=== PATIENT | male | born 1950 | race Hispanic/Latino ===

== ENCOUNTER 2019-12-06 09:23 | Inpatient (IN) | payer MEDICARE, OTHER ==
[~2019-12-06] VITALS: Ht 162.6 cm; Wt 81.2 kg
[~2019-12-06 09:23] MED LIST: DIPHENOXYLATE-1 EACH PO; MORPHINE SULFAT15 M3
[2019-12-06 09:29] VITALS: BP 170/90
--- NOTE | 2019-12-06 10:10 | Emergency Room Report ---
History of Present Illness General Chief Complaint: Abdominal Pain Source: Patient Present Illness HPI 69-year-old male presents for evaluation. Brought in by EMS from home for vomiting and diarrhea. States symptoms started yesterday. Pain is cramping, 6 out of 10, nonradiating. Denies fevers or chills. Denies chest pain or shortness of breath. States that earlier this week he tested positive for COVID. Had a mild cough so he got tested. Lives with several of her family members. Unclear of their COVID status. No other aggravating relieving factors. Denies any other associated symptoms Allergies: Coded Allergies: No Known Allergies (Unverified , 07/13/12) COVID-19 Screening Contact w/high risk pt: No Experienced COVID-19 symptoms?: Yes COVID-19 Testing performed INFECTIOUS DISEASES PHYSICIAN: Yes COVID-19 Screening: Positive COVID-19 COVID-19 Testing Source: NOSE Patient History Past Medical History: other - colon ca Past Surgical History: none Pertinent Family History: none Social History: Denies: smoking, alcohol use, drug use Immunizations: UTD Reviewed Nursing Documentation: PMH: Agreed; PSxH: Agreed Nursing Documentation-PMH Past Medical History: No Stated History Hx Cancer: Yes - COLON CA Hx Gastrointestinal Problems: Yes - COLOSTOMY Review of Systems All Other Systems: negative except mentioned in HPI Physical Exam Vital Signs Date Time Temp Pulse Resp B/P (MAP) Pulse Ox O2 Delivery O2 Flow Rate FiO2 12/06/19 09:18 98.8 88 16 170/90 (116) 96 Room Air Sp02 EP Interpretation: reviewed, normal General Appearance: no apparent distress, alert, GCS 15, non-toxic Head: normocephalic, atraumatic Eyes: bilateral eye normal inspection, bilateral eye PERRL ENT: hearing grossly normal, normal pharynx, no angioedema, normal voice Neck: full range of motion, supple/symm/no masses Respiratory: chest non-tender, lungs clear, normal breath sounds, speaking full sentences Cardiovascular #1: regular rate, rhythm, no edema Cardiovascular #2: 2+ carotid (R), 2+ carotid (L), 2+ radial (R), 2+ radial (L) , 2+ dorsalis pedis (R), 2+ dorsalis pedis (L) Gastrointestinal: normal bowel sounds, non tender, soft, non-distended, no guarding, no rebound Rectal: deferred Genitourinary: normal inspection, no CVA tenderness Musculoskeletal: back normal, normal range of motion, gait/station normal, non- tender Neurologic: alert, motor strength/tone normal, oriented x3, sensory intact, responsive, speech normal Psychiatric: judgement/insight normal, memory normal, mood/affect normal, no suicidal/homicidal ideation Reflexes: 3+ bicep (R), 3+ bicep (L), 3+ tricep (R), 3+ tricep (L), 3+ knee (R) , 3+ knee (L) Lymphatic: no adenopathy Medical Decision Making Diagnostic Impression: Primary Impression: Nausea vomiting and diarrhea Additional Impressions: Weakness COVID-19 ER Course Hospital Course 69-year-old male presents ED with weakness, vomiting and diarrhea Differentialcolitis, dehydration, COVID Clinical course After initial history and physical I ordered labs, IV fluids, meds, chest x-ray Labs - leukopenia noted, Hb/Hct stable. electrolytes ok. COVID + CXR - no acute process IV hydration continued. Case discussed with Dr. Castillo and he agreed to accept the patient to his service for further care and support I feel this is a highly complex case requiring extensive working including EKG/ Rhythm strip, Xray/CT/US, Blood/urine lab work, repeat exams while in ED, and administration of strong opiates/narcotics for pain control, admission to hospital or close patient follow up. Diagnosis -nausea vomiting and diarrhea, weakness, COVID-19 Patient admitted to hospital in serious condition Laboratory Tests Test 12/06/19 09:32 White Blood Count 4.5 K/UL (4.8-10.8) L Red Blood Count 4.62 M/UL (4.70-6.10) L Hemoglobin 13.5 G/DL (14.2-18.0) L Hematocrit 41.6 % (42.0-52.0) L Mean Corpuscular Volume 90 FL (80-99) Mean Corpuscular Hemoglobin 29.3 PG (27.0-31.0) Mean Corpuscular Hemoglobin Concent 32.5 G/DL (32.0-36.0) Red Cell Distribution Width 11.3 % (11.6-14.8) L Platelet Count 221 K/UL (150-450) Mean Platelet Volume 5.6 FL (6.5-10.1) L Neutrophils (%) (Auto) 76.0 % (45.0-75.0) H Lymphocytes (%) (Auto) 14.1 % (20.0-45.0) L Monocytes (%) (Auto) 7.0 % (1.0-10.0) Eosinophils (%) (Auto) 2.6 % (0.0-3.0) Basophils (%) (Auto) 0.3 % (0.0-2.0) Erythrocyte Sedimentation Rate 24 MM/HR (0-20) H Prothrombin Time 10.9 SEC (9.30-11.50) Prothromb Time International Ratio 1.0 (0.9-1.1) Activated Partial Thromboplast Time 31 SEC (23-33) D-Dimer 0.26 mg/L FEU (0.00-0.49) Urine Color Pale yellow Urine Appearance Clear Urine pH 7 (4.5-8.0) Urine Specific [place] 1.010 (1.005-1.035) Urine Protein Negative (NEGATIVE) Urine Glucose (UA) Negative (NEGATIVE) Urine Ketones Negative (NEGATIVE) Urine Blood Negative (NEGATIVE) Urine Nitrite Negative (NEGATIVE) Urine Bilirubin Negative (NEGATIVE) Urine Urobilinogen Normal MG/DL (0.0-1.0) Urine Leukocyte Esterase Negative (NEGATIVE) Sodium Level 140 MMOL/L (136-145) Potassium Level 4.1 MMOL/L (3.5-5.1) Chloride Level 103 MMOL/L (98-107) Carbon Dioxide Level 30 MMOL/L (21-32) Anion Gap 7 mmol/L (5-15) Blood Urea Nitrogen 13 mg/dL (7-18) Creatinine 1.0 MG/DL (0.55-1.30) Estimat Glomerular Filtration Rate > 60 mL/min (>60) Glucose Level 102 MG/DL (74-106) Calcium Level 8.2 MG/DL (8.5-10.1) L Ferritin 135 NG/ML (8-388) Total Bilirubin 0.3 MG/DL (0.2-1.0) Aspartate Amino Transf (AST/SGOT) 21 U/L (15-37) Alanine Aminotransferase (ALT/SGPT) 24 U/L (12-78) Alkaline Phosphatase 88 U/L (46-116) C-Reactive Protein, Quantitative < 0.4 mg/dL (0.00-0.90) Total Protein 7.1 G/DL (6.4-8.2) Albumin 3.3 G/DL (3.4-5.0) L Globulin 3.8 g/dL Albumin/Globulin Ratio 0.9 (1.0-2.7) L Lipase 102 U/L (73-393) Chest X-Ray Diagnostic Results Chest X-Ray Diagnostic Results : Chest X-Ray Ordered: Yes # of Views/Limited/Complete: 1 View Indication: Other EP Interpretation: Yes Interpretation: no consolidation, no effusion, no pneumothorax Impression: No acute disease Electronically Signed by: Electronically signed by Jones Villagomez MD Last Vital Signs Date Time Temp Pulse Resp B/P (MAP) Pulse Ox O2 Delivery O2 Flow Rate FiO2 12/06/19 09:29 88 16 Room Air 12/06/19 09:29 98.8 170/90 96 Status: improved Disposition: ADMITTED INPATIENT Condition: Serious Referrals: [facility],REFERRING (PCP) Jones Villagomez MD Dec 06, 2019 10:10
[2019-12-06 10:37] LABS: BASOPHILS % (AUTO) 0.3 % (0.0-2.0); EOSINOPHILS % (AUTO) 2.6 % (0.0-3.0); HEMATOCRIT 41.6 % (42.0-52.0); HEMOGLOBIN 13.5 G/DL (14.2-18.0); LYMPHOCYTES % (AUTO) 14.1 % (20.0-45.0); MEAN CORPUSCULAR VOLUME 90 FL (80-99); PLATELET COUNT 221 K/UL (150-450); RED BLOOD COUNT 4.62 M/UL (4.70-6.10); RED CELL DISTRIBUTION WIDTH 11.3 % (11.6-14.8); WHITE BLOOD COUNT 4.5 K/UL (4.8-10.8)
[2019-12-06 10:40] LABS: APPEARANCE,URINE CLEAR; BILIRUBIN, URINE NEGATIVE (NEGATIVE); COLOR,URINE PALE YELLOW; GLUCOSE, URINE (UA) NEGATIVE (NEGATIVE); KETONES,URINE NEGATIVE (NEGATIVE); LEUKOCYTE ESTERASE ,URINE NEGATIVE (NEGATIVE); NITRITE,URINE NEGATIVE (NEGATIVE); PH,URINE 7 (4.5-8.0); PROTEIN,URINE NEGATIVE (NEGATIVE); UROBILINOGEN,URINE NORMAL MG/DL (0.0-1.0)
[2019-12-06 10:57] LABS: ANION GAP 7 mmol/L (5-15); BLOOD UREA NITROGEN 13 mg/dL (7-18); CALCIUM 8.2 MG/DL (8.5-10.1); CARBON DIOXIDE 30 MMOL/L (21-32); CHLORIDE 103 MMOL/L (98-107); POTASSIUM 4.1 MMOL/L (3.5-5.1); SODIUM 140 MMOL/L (136-145)
[2019-12-06 11:13] LABS: ALANINE AMINOTRANSFERASE 24 U/L (12-78); ALBUMIN 3.3 G/DL (3.4-5.0); ALBUMIN/GLOBULIN RATIO 0.9 (1.0-2.7); ALKALINE PHOSPHATASE 88 U/L (46-116); ASPARTATE AMINO TRANSFERASE 21 U/L (15-37); BILIRUBIN,TOTAL 0.3 MG/DL (0.2-1.0); FERRITIN 135 NG/ML (8-388)
[2019-12-06 11:29] VITALS: BP 157/89
--- NOTE | 2019-12-06 13:14 | History & Physical ---
History and Physical History & Physicial dictated [id number] Reinaldo Castillo MD Dec 06, 2019 13:14
[2019-12-06] MEDS ORDERED: Morphine Sulfate 2mg/ml Inj(IV/IM USE ONLY) IVP PRN (13:15)
[2019-12-06] MEDS ORDERED: Zolpidem 5mg tab ORAL PRN (13:15)
[2019-12-06] MEDS: Azithromycin 250mg tab ORAL SCH (14:00)
[2019-12-06] MEDS: Enoxaparin 40mg Inj SUBQ SCH (14:00)
[2019-12-06] MEDS: D5 1/2NS w/KCl 20mEq 1,000 ML IV SCH (14:00)
[2019-12-06 16:00] VITALS: BP 128/67
--- NOTE | 2019-12-06 17:06 | Diagnostic Imaging Report ---
Indication: Cough Technique: One view of the chest Comparison: none Findings: Lungs and pleural spaces are clear. Heart size is normal. Impression: No acute process
[2019-12-06] MEDS: Morphine Sulfate 4mg/ml Inj (IV USE ONLY) IVP PRN ×2 (17:50→21:26)
[2019-12-06 20:00] VITALS: BP 117/69
[2019-12-06] MEDS: Milk of Magnesia 30ml Ud ORAL PRN (21:29)
--- NOTE | 2019-12-06 23:30 | History and Physical Report ---
DATE OF ADMISSION: 12/06/2019 CHIEF COMPLAINT: Diarrhea, abdominal pain, and chest pain. HISTORY OF PRESENT ILLNESS: This is a 69-year-old male, who started getting weak and dizzy on last Monday, which is four days prior to admission. The following day, he started having diarrhea. On Monday, he was seen at [facility] and was tested positive for COVID-19. His symptoms of diarrhea continued and finally he came to the emergency room. The patient has also chest pain and some cough and not short of breath. PAST MEDICAL HISTORY: Reported history of colon cancer. MEDICATIONS: Reviewed in the EMR. SOCIAL HISTORY: No history of smoking or alcohol abuse. The patient lives at home with family. ALLERGIES: No known drug allergies. REVIEW OF SYSTEMS: As above. PHYSICAL EXAMINATION: GENERAL: The patient is 69-year-old male, in no acute distress. VITAL SIGNS: Blood pressure 170/90, pulse 88, respirations 16, temperature 98.8. The patient's O2 saturation is 96% on room air. HEENT: [place] conjunctivae. Anicteric sclerae. NECK: Supple. LUNGS: Clear to auscultation. HEART: S1, S2 without murmurs or rubs. ABDOMEN: Soft, nontender. EXTREMITIES: No cyanosis or edema. LABORATORY FINDINGS: The CBC shows a WBC of 4500, hematocrit is 41.6, hemoglobin is 13.5, and platelet is 221,000. Chemistry panel shows a serum sodium 140, potassium 4.1, chloride 103, carbon dioxide 30, BUN 13, creatinine 1, calcium is 8.2. Albumin is 3.3. UA was negative. ASSESSMENT: This is 69-year-old male, who comes to the emergency room with diarrhea, chest pain, abdominal pain, some cough and reported COVID-19 test positivity. So far, he does not have shortness of breath. Denies respiratory symptoms. PLAN: The patient will be admitted. He is going to be on empiric Zithromax. ID consultation will be obtained. He will be hydrated with IV fluids. The patient will be on full liquid diet. DVT prophylaxis with Lovenox. Once he is improved, he can go home and needs to be in isolation. Reinaldo Castillo M.D. DR: MACK JOB#: [id number] CC:
[2019-12-07] VITALS (15 sets, daily range): BP systolic 121–156; BP diastolic 63–82
[2019-12-07] MEDS: D5 1/2NS w/KCl 20mEq 1,000 ML IV SCH ×3 (00:05→21:30)
[2019-12-07] MEDS: Morphine Sulfate 4mg/ml Inj (IV USE ONLY) IVP PRN ×3 (05:28→20:56)
[2019-12-07 06:16] LABS: BASOPHILS % (AUTO) 0.4 % (0.0-2.0); EOSINOPHILS % (AUTO) 1.4 % (0.0-3.0); HEMATOCRIT 41.2 % (42.0-52.0); HEMOGLOBIN 13.3 G/DL (14.2-18.0); LYMPHOCYTES % (AUTO) 9.9 % (20.0-45.0); MEAN CORPUSCULAR VOLUME 91 FL (80-99); MONOCYTES % (AUTO) 4.5 % (1.0-10.0); NEUTROPHILS % (AUTO) 83.8 % (45.0-75.0); PLATELET COUNT 216 K/UL (150-450); RED BLOOD COUNT 4.54 M/UL (4.70-6.10); RED CELL DISTRIBUTION WIDTH 11.6 % (11.6-14.8)
[2019-12-07 06:37] LABS: ALANINE AMINOTRANSFERASE 26 U/L (12-78); ALBUMIN 3.4 G/DL (3.4-5.0); ALBUMIN/GLOBULIN RATIO 0.8 (1.0-2.7); ALKALINE PHOSPHATASE 90 U/L (46-116); ANION GAP 5 mmol/L (5-15); ASPARTATE AMINO TRANSFERASE 23 U/L (15-37); BILIRUBIN,TOTAL 0.3 MG/DL (0.2-1.0); BLOOD UREA NITROGEN 10 mg/dL (7-18); CALCIUM 8.1 MG/DL (8.5-10.1); CARBON DIOXIDE 32 MMOL/L (21-32); CHLORIDE 101 MMOL/L (98-107); POTASSIUM 4.3 MMOL/L (3.5-5.1); SODIUM 138 MMOL/L (136-145)
[2019-12-07] MEDS: Azithromycin 250mg tab ORAL SCH (08:56)
[2019-12-07] MEDS: Enoxaparin 40mg Inj SUBQ SCH (08:56)
--- NOTE | 2019-12-07 14:36 | General Progress Note ---
Assessment/Plan Problem List: (1) COVID-19 ICD Codes: U07.1 - COVID-19 SNOMED: 473015282 (2) Nausea vomiting and diarrhea ICD Codes: R11.2 - Nausea with vomiting, unspecified; R19.7 - Diarrhea, unspecified SNOMED: 8786004 (3) Weakness ICD Codes: R53.1 - Weakness; R19.7 - Diarrhea, unspecified SNOMED: 96534686 Assessment/Plan: abxs IVF follow labs Discussed with RN Subjective Allergies: Coded Allergies: No Known Allergies (Unverified , 07/13/12) Subjective diarrhea is better Objective Last 24 Hour Vital Signs Date Time Temp Pulse Resp B/P (MAP) Pulse Ox O2 Delivery O2 Flow Rate FiO2 12/07/19 12:30 97.7 70 18 154/82 (106) 97 12/07/19 08:30 97.6 81 18 148/66 (93) 98 12/07/19 08:00 97.5 81 18 151/75 (100) 99 12/07/19 07:48 Room Air 12/07/19 07:30 97.6 72 18 134/64 (87) 97 12/07/19 06:30 98.0 68 18 126/67 (86) 98 12/07/19 05:30 98.8 74 18 149/70 (96) 96 12/07/19 04:30 97.5 71 18 149/73 (98) 99 12/07/19 04:00 97.5 63 18 127/66 (86) 97 12/07/19 03:30 97.4 59 18 130/63 (85) 100 12/07/19 03:24 56 20 96 12/07/19 03:19 97.3 96 Nasal Cannula 2.0 12/07/19 03:00 97.6 63 16 141/72 (95) 100 12/07/19 00:00 98.3 79 18 121/68 (85) 97 12/06/19 21:00 Room Air 12/06/19 20:00 98.0 74 18 117/69 (85) 97 12/06/19 16:00 98.9 66 18 128/67 (87) 97 Intake and Output 12/06/19 12/07/19 19:00 07:00 Intake Total 1100 ml 1000 ml Output Total 1400 ml Balance 1100 ml -400 ml Intake Oral 0 ml IV Total 500 ml 1000 ml Other 600 ml Output Urine Total 1400 ml # Voids 5 Laboratory Tests 12/07/19 05:30: White Blood Count 5.0, Red Blood Count 4.54L, Hemoglobin 13.3L, Hematocrit 41.2L , Mean Corpuscular Volume 91, Mean Corpuscular Hemoglobin 29.2, Mean Corpuscular Hemoglobin Concent 32.2, Red Cell Distribution Width 11.6, Platelet Count 216, Mean Platelet Volume 5.3L, Neutrophils (%) (Auto) 83.8H, Lymphocytes (%) (Auto) 9.9L, Monocytes (%) (Auto) 4.5, Eosinophils (%) (Auto) 1.4, Basophils (%) (Auto) 0.4, Sodium Level 138, Potassium Level 4.3, Chloride Level 101, Carbon Dioxide Level 32, Anion Gap 5, Blood Urea Nitrogen 10, Creatinine 1.0, Estimat Glomerular Filtration Rate > 60, Glucose Level 129H, Hemoglobin A1c 5.9, Calcium Level 8.1L, Magnesium Level 2.2, Total Bilirubin 0.3, Aspartate Amino Transf (AST/SGOT) 23, Alanine Aminotransferase (ALT/SGPT) 26, Alkaline Phosphatase 90, Total Protein 7.5, Albumin 3.4, Globulin 4.1, Albumin/ Globulin Ratio 0.8L Height (Feet): 5 Height (Inches): 4.00 Weight (Pounds): 180 Reinaldo Castillo MD Dec 07, 2019 14:36
[2019-12-07] MEDS: Milk of Magnesia 30ml Ud ORAL PRN (21:02)
[2019-12-08] VITALS (14 sets, daily range): BP systolic 126–142; BP diastolic 68–82
[2019-12-08] MEDS: D5 1/2NS w/KCl 20mEq 1,000 ML IV SCH ×2 (06:00→17:31)
[2019-12-08] MEDS: Azithromycin 250mg tab ORAL SCH (09:50)
[2019-12-08] MEDS: Enoxaparin 40mg Inj SUBQ SCH (09:51)
[2019-12-08] MEDS ORDERED: guaiFENesin w/Codeine 5ml Liq ud ORAL PRN (11:44)
--- NOTE | 2019-12-08 11:44 | General Progress Note ---
Assessment/Plan Problem List: (1) COVID-19 ICD Codes: U07.1 - COVID-19 SNOMED: 593972178 (2) Nausea vomiting and diarrhea ICD Codes: R11.2 - Nausea with vomiting, unspecified; R19.7 - Diarrhea, unspecified SNOMED: 7940718 (3) Weakness ICD Codes: R53.1 - Weakness; R19.7 - Diarrhea, unspecified SNOMED: 49109469 Assessment/Plan: add Robitussin with codeine abxs IVF Discussed with RN Subjective Allergies: Coded Allergies: No Known Allergies (Unverified , 07/13/12) Subjective C/O cough Objective Last 24 Hour Vital Signs Date Time Temp Pulse Resp B/P (MAP) Pulse Ox O2 Delivery O2 Flow Rate FiO2 12/08/19 08:30 98.3 72 20 134/82 (99) 97 12/08/19 08:00 98.3 72 20 134/82 (99) 97 12/08/19 04:00 98.0 70 19 138/79 (98) 96 12/08/19 00:00 98.2 60 20 142/73 (96) 95 12/07/19 20:36 Room Air 12/07/19 20:00 97.7 56 20 137/66 (89) 95 12/07/19 16:30 96.3 71 18 156/80 (105) 97 12/07/19 12:30 97.7 70 18 154/82 (106) 97 Intake and Output 12/07/19 12/08/19 19:00 07:00 Intake Total 600 ml 700 ml Balance 600 ml 700 ml Intake Oral 600 ml IV Total 700 ml # Voids 2 3 # Bowel Movements 2 Height (Feet): 5 Height (Inches): 4.00 Weight (Pounds): 180 Cardiovascular: normal rate Respiratory/Chest: lungs clear Edema: no edema noted Generalized Reinaldo Castillo MD Dec 08, 2019 11:44
--- NOTE | 2019-12-08 18:30 | Consultation ---
DATE OF CONSULTATION: 12/08/2019 This is a 69-year-old male who was admitted to the hospital with COVID-19 pneumonia. He reports diarrhea, weakness and dizziness. He has tested outside and is positive for COVID-19. He also underwent rapid gene assay at this hospital, which came back positive. The patient states that he is feeling better overnight. I have reviewed his x-ray, which shows clear lung linares bilaterally. Currently, he is also noted to be saturating well on room air. PAST HISTORY: Unremarkable except for history of colon cancer. SOCIAL HISTORY: Denies alcohol or tobacco use. Lives at home with family. ALLERGIES: None. REVIEW OF SYSTEMS: Denies any headaches, hematemesis, melena, or hematochezia. PHYSICAL EXAMINATION: GENERAL: Reveals a 69-year-old male. HEENT: Unremarkable. LUNGS: Clear breath sounds. ABDOMEN: Soft. EXTREMITIES: There is no edema. NEUROLOGIC: Nonfocal. LABORATORY DATA: Lab testing is unremarkable except for borderline low white count of 4500. IMPRESSION: 1. COVID-19 pneumonia. 2. Normoxemia. DISCUSSION: Continue medications. At this time, I feel he can be discharged safely as long as he can self quarantine. We will follow as needed. Pop Waldrop M.D. DR: PROSPER JOB#: [id number] CC:
--- NOTE | 2019-12-08 20:44 | Consultation ---
DATE OF CONSULTATION: 12/08/2019 INFECTIOUS DISEASE CONSULTATION CONSULTING PHYSICIAN: Don Castillo MD. PRIMARY ATTENDING: Reinaldo Castillo MD. REASON FOR CONSULT: COVID-19 disease. HISTORY OF PRESENT ILLNESS: This is a 69-year-old male admitted on 12/06/2019 from home because of abdominal pain, diarrhea. Patient had a cough that is slightly productive, was diagnosed with COVID-19 disease. He is not hypoxemic and in room air oxygenation. PAST MEDICAL HISTORY: Significant for history of colon cancer. Had surgery in 2008. ALLERGIES: No known drug allergies. MEDICATIONS: Robitussin, enoxaparin, famotidine, Zithromax, Tylenol, morphine, Zofran, Ambien. SOCIAL HISTORY: . Originally from [place], [place]. Denies alcohol, drug abuse, or smoking. He is retired. REVIEW OF SYSTEMS: No fever. No chills. Mild productive coughing. No nausea. No vomiting. Mild diarrhea. No dysuria. PHYSICAL EXAMINATION: VITAL SIGNS: Temperature 98.3, pulse 71, blood pressure 138/79. GENERAL APPEARANCE: Overweight. HEAD AND NECK: [place] conjunctivae. HEART: Normal rate. LUNGS: Clear. ABDOMEN: Soft, nontender. EXTREMITIES: No edema. LABORATORY AND DIAGNOSTIC DATA: WBC 5000, hemoglobin 13.3, hematocrit 41.2, platelets 216, lymphocyte count is low at 9.9%. Sodium 138, potassium 4.3, chloride 101, BUN 10, creatinine 1, glucose 129. LFTs within normal limits. COVID-19 test was positive. Chest x-ray, no acute infiltrate. IMPRESSION: COVID-19 disease. Seems patient had no hypoxemia. Has history of colon cancer. Has lymphopenia. RECOMMENDATION: Discontinue Zithromax. We will follow up the clinical course. At the end of my exam, I thank Dr. Reinaldo Castillo, for involving me in the care of this patient. Don Castillo M.D. DR: SOFIA JOB#: [id number] CC: MICHELLE
[2019-12-09] VITALS (9 sets, daily range): BP systolic 110–144; BP diastolic 56–83
[2019-12-09] MEDS: D5 1/2NS w/KCl 20mEq 1,000 ML IV SCH ×3 (02:00→22:25)
[2019-12-09] MEDS: Enoxaparin 40mg Inj SUBQ SCH (08:11)
--- NOTE | 2019-12-09 09:43 | Pulmonology Progress Note ---
Subjective Interval Events: None new; discussed with RN Constitutional: Reports: no symptoms HEENT: Repors: no symptoms Respiratory: Reports: no symptoms Gastrointestinal/Abdominal: Reports: no symptoms Allergies: Coded Allergies: No Known Allergies (Unverified , 07/13/12) Objective Last 24 Hour Vital Signs Date Time Temp Pulse Resp B/P (MAP) Pulse Ox O2 Delivery O2 Flow Rate FiO2 12/09/19 04:00 97.7 71 19 144/71 (95) 94 12/09/19 03:02 97.8 76 18 137/65 (89) 95 12/09/19 02:02 98.2 78 19 132/68 (89) 95 12/09/19 01:02 98.3 82 18 135/75 (95) 94 12/09/19 00:02 98.0 76 20 133/79 (97) 93 12/08/19 23:02 97.6 85 19 127/75 (92) 95 12/08/19 22:56 Room Air 12/08/19 22:32 97.8 87 19 128/72 (90) 96 12/08/19 22:19 98.1 95 Room Air 12/08/19 22:02 98.1 89 18 134/68 (90) 95 12/08/19 21:56 95 18 95 12/08/19 21:32 98.2 93 19 132/72 (92) 95 12/08/19 21:02 98.1 95 18 135/68 (90) 95 12/08/19 20:00 97.7 77 19 126/77 (93) 95 12/08/19 16:00 98.6 74 19 130/80 (97) 97 12/08/19 12:00 98.3 71 19 138/79 (98) 98 Intake and Output 12/08/19 12/09/19 19:00 07:00 Intake Total 2260 ml 50 ml Balance 2260 ml 50 ml Intake Oral 1360 ml 50 ml IV Total 900 ml # Voids 6 2 General Appearance: no acute distress HEENT: normocephalic Respiratory: chest wall non-tender, lungs clear Cardiovascular: normal peripheral pulses Abdomen: normal bowel sounds Current Medications Medications (Trade) Dose Ordered Sig/Eulogio Route PRN Reason Start Time Stop Time Status Last Admin Dose Admin Acetaminophen (Tylenol) 650 mg Q4H PRN ORAL Mild Pain (Pain Scale 1-3) 12/06/19 13:15 01/05/20 13:14 Dextrose (Dextrose 50%) 25 ml Q30M PRN IV Hypoglycemia 12/06/19 13:15 03/05/20 13:14 Dextrose (Dextrose 50%) 50 ml Q30M PRN IV Hypoglycemia 12/06/19 13:15 03/05/20 13:14 Dextrose/ Electrolytes 1,000 ml @ 100 mls/hr Q10H IV 12/06/19 14:00 01/05/20 13:59 12/08/19 17:31 Enoxaparin Sodium (Lovenox) 40 mg DAILY SUBQ 12/06/19 14:00 03/05/20 13:59 12/09/19 08:11 Famotidine (Pepcid) 20 mg BID ORAL 12/06/19 14:00 03/05/20 13:59 12/09/19 08:10 Guaifenesin/ Codeine Phosphate (Robitussin with codeine) 5 ml Q6H PRN ORAL For Cough 12/08/19 11:44 01/07/20 11:43 Magnesium Hydroxide (Mom) 30 ml HSPRN PRN ORAL Constipation 12/06/19 13:15 01/05/20 13:14 12/07/19 21:02 Morphine Sulfate (Morphine Sulfate) 2 mg Q3H PRN IVP Moderate Pain (Pain Scale 4-6) 12/06/19 13:15 12/13/19 13:14 12/08/19 03:08 Morphine Sulfate (Morphine Sulfate) 4 mg Q3H PRN IVP Severe Pain (Pain Scale 7-10) 12/06/19 13:15 12/13/19 13:14 12/07/19 20:56 Ondansetron HCl (Zofran) 4 mg Q6H PRN IVP Nausea & Vomiting 12/06/19 13:15 01/05/20 13:14 Zolpidem Tartrate (Ambien) 5 mg HSPRN PRN ORAL Insomnia 12/06/19 13:15 12/13/19 13:14 Assessment/Plan Assessment/Plan IMPRESSION: 1. COVID-19 pneumonia. 2. Normoxemia. DISCUSSION: Continue medications. At this time, I feel he can be discharged safely as long as he can self quarantine. I will follow as needed. Meg Glover Omar Syed ME Dec 09, 2019 09:43
--- NOTE | 2019-12-09 10:46 | Infectious Diseases Prog Note ---
Assessment/Plan Assessment/Plan IMPRESSION: COVID-19 disease. Seems patient had no hypoxemia. History of colon cancer. Has lymphopenia. Diarrhea resolved RECOMMENDATION: Observe off antibiotic Subjective ROS Limited/Unobtainable: No Constitutional: Reports: no symptoms Respiratory: Reports: no symptoms Cardiovascular: Reports: no symptoms Gastrointestinal/Abdominal: Reports: no symptoms Allergies: Coded Allergies: No Known Allergies (Unverified , 07/13/12) Objective Last 24 Hour Vital Signs Date Time Temp Pulse Resp B/P (MAP) Pulse Ox O2 Delivery O2 Flow Rate FiO2 12/09/19 08:00 97.9 98 18 119/83 (95) 93 12/09/19 04:00 97.7 71 19 144/71 (95) 94 12/09/19 03:02 97.8 76 18 137/65 (89) 95 12/09/19 02:02 98.2 78 19 132/68 (89) 95 12/09/19 01:02 98.3 82 18 135/75 (95) 94 12/09/19 00:02 98.0 76 20 133/79 (97) 93 12/08/19 23:02 97.6 85 19 127/75 (92) 95 12/08/19 22:56 Room Air 12/08/19 22:32 97.8 87 19 128/72 (90) 96 12/08/19 22:19 98.1 95 Room Air 12/08/19 22:02 98.1 89 18 134/68 (90) 95 12/08/19 21:56 95 18 95 12/08/19 21:32 98.2 93 19 132/72 (92) 95 12/08/19 21:02 98.1 95 18 135/68 (90) 95 12/08/19 20:00 97.7 77 19 126/77 (93) 95 12/08/19 16:00 98.6 74 19 130/80 (97) 97 12/08/19 12:00 98.3 71 19 138/79 (98) 98 Height (Feet): 5 Height (Inches): 4.00 Weight (Pounds): 180 HEENT: mucous membranes moist Respiratory/Chest: lungs clear Cardiovascular: normal rate Abdomen: soft, non tender Extremities: no edema Neurologic/Psychiatric: alert, oriented x 3, responsive Current Medications Medications (Trade) Dose Ordered Sig/Eulogio Route PRN Reason Start Time Stop Time Status Last Admin Dose Admin Acetaminophen (Tylenol) 650 mg Q4H PRN ORAL Mild Pain (Pain Scale 1-3) 12/06/19 13:15 01/05/20 13:14 Dextrose (Dextrose 50%) 25 ml Q30M PRN IV Hypoglycemia 12/06/19 13:15 03/05/20 13:14 Dextrose (Dextrose 50%) 50 ml Q30M PRN IV Hypoglycemia 12/06/19 13:15 03/05/20 13:14 Dextrose/ Electrolytes 1,000 ml @ 100 mls/hr Q10H IV 12/06/19 14:00 01/05/20 13:59 12/08/19 17:31 Enoxaparin Sodium (Lovenox) 40 mg DAILY SUBQ 12/06/19 14:00 03/05/20 13:59 12/09/19 08:11 Famotidine (Pepcid) 20 mg BID ORAL 12/06/19 14:00 03/05/20 13:59 12/09/19 08:10 Guaifenesin/ Codeine Phosphate (Robitussin with codeine) 5 ml Q6H PRN ORAL For Cough 12/08/19 11:44 01/07/20 11:43 Magnesium Hydroxide (Mom) 30 ml HSPRN PRN ORAL Constipation 12/06/19 13:15 01/05/20 13:14 12/07/19 21:02 Morphine Sulfate (Morphine Sulfate) 2 mg Q3H PRN IVP Moderate Pain (Pain Scale 4-6) 12/06/19 13:15 12/13/19 13:14 12/08/19 03:08 Morphine Sulfate (Morphine Sulfate) 4 mg Q3H PRN IVP Severe Pain (Pain Scale 7-10) 12/06/19 13:15 12/13/19 13:14 12/07/19 20:56 Ondansetron HCl (Zofran) 4 mg Q6H PRN IVP Nausea & Vomiting 12/06/19 13:15 01/05/20 13:14 Zolpidem Tartrate (Ambien) 5 mg HSPRN PRN ORAL Insomnia 12/06/19 13:15 12/13/19 13:14 Don Castillo MD Dec 09, 2019 10:46
--- NOTE | 2019-12-09 23:06 | General Progress Note ---
Assessment/Plan Problem List: (1) COVID-19 ICD Codes: U07.1 - COVID-19 SNOMED: 435743680 (2) Nausea vomiting and diarrhea ICD Codes: R11.2 - Nausea with vomiting, unspecified; R19.7 - Diarrhea, unspecified SNOMED: 4128830 (3) Weakness ICD Codes: R53.1 - Weakness; R19.7 - Diarrhea, unspecified SNOMED: 53927911 Assessment/Plan: continueRobitussin with codeine abxs IVF Discussed with RN Subjective Allergies: Coded Allergies: No Known Allergies (Unverified , 07/13/12) Subjective weak Objective Last 24 Hour Vital Signs Date Time Temp Pulse Resp B/P (MAP) Pulse Ox O2 Delivery O2 Flow Rate FiO2 12/09/19 19:02 98.2 75 18 110/56 (74) 95 12/09/19 15:02 97.2 81 18 134/81 (98) 97 12/09/19 11:02 97.3 73 20 134/77 (96) 97 12/09/19 09:00 Room Air 12/09/19 08:00 97.9 98 18 119/83 (95) 93 12/09/19 04:00 97.7 71 19 144/71 (95) 94 12/09/19 03:02 97.8 76 18 137/65 (89) 95 12/09/19 02:02 98.2 78 19 132/68 (89) 95 12/09/19 01:02 98.3 82 18 135/75 (95) 94 12/09/19 00:02 98.0 76 20 133/79 (97) 93 Intake and Output 12/08/19 12/09/19 19:00 07:00 Intake Total 2360 ml 150 ml Balance 2360 ml 150 ml Intake Oral 1360 ml 50 ml IV Total 1000 ml 100 ml # Voids 6 2 Height (Feet): 5 Height (Inches): 4.00 Weight (Pounds): 180 Reinaldo Castillo MD Dec 09, 2019 23:06
[2019-12-10] VITALS: BP 143/82
[2019-12-10 04:00] VITALS: BP 135/73
[2019-12-10 08:00] VITALS: BP 133/77
[2019-12-10] MEDS: Enoxaparin 40mg Inj SUBQ SCH (08:39)
[2019-12-10] MEDS: D5 1/2NS w/KCl 20mEq 1,000 ML IV SCH ×2 (10:05→17:48)
--- NOTE | 2019-12-10 11:22 | Pulmonology Progress Note ---
Subjective ROS Limited/Unobtainable: No Interval Events: None new; discussed with RN Constitutional: Reports: no symptoms HEENT: Repors: no symptoms Respiratory: Reports: no symptoms Gastrointestinal/Abdominal: Reports: no symptoms Allergies: Coded Allergies: No Known Allergies (Unverified , 07/13/12) Objective Last 24 Hour Vital Signs Date Time Temp Pulse Resp B/P (MAP) Pulse Ox O2 Delivery O2 Flow Rate FiO2 12/10/19 09:00 Room Air 12/10/19 08:00 98.8 73 18 133/77 (95) 93 12/10/19 04:00 96.8 76 18 135/73 (93) 93 12/10/19 00:00 97.3 79 18 143/82 (102) 96 12/09/19 21:00 Room Air 12/09/19 19:02 98.2 75 18 110/56 (74) 95 12/09/19 15:02 97.2 81 18 134/81 (98) 97 Intake and Output 12/09/19 12/10/19 19:00 07:00 Intake Total 1701 ml 1560 ml Balance 1701 ml 1560 ml IV Total 701 ml 1200 ml Other 1000 ml 360 ml # Voids 3 # Bowel Movements 1 General Appearance: no acute distress HEENT: normocephalic Respiratory: chest wall non-tender, lungs clear Cardiovascular: normal peripheral pulses Abdomen: normal bowel sounds Current Medications Medications (Trade) Dose Ordered Sig/Eulogio Route PRN Reason Start Time Stop Time Status Last Admin Dose Admin Acetaminophen (Tylenol) 650 mg Q4H PRN ORAL Mild Pain (Pain Scale 1-3) 12/06/19 13:15 01/05/20 13:14 Dextrose (Dextrose 50%) 25 ml Q30M PRN IV Hypoglycemia 12/06/19 13:15 03/05/20 13:14 Dextrose (Dextrose 50%) 50 ml Q30M PRN IV Hypoglycemia 12/06/19 13:15 03/05/20 13:14 Dextrose/ Electrolytes 1,000 ml @ 100 mls/hr Q10H IV 12/06/19 14:00 01/05/20 13:59 12/10/19 10:05 Enoxaparin Sodium (Lovenox) 40 mg DAILY SUBQ 12/06/19 14:00 03/05/20 13:59 12/10/19 08:39 Famotidine (Pepcid) 20 mg BID ORAL 12/06/19 14:00 03/05/20 13:59 12/10/19 08:39 Guaifenesin/ Codeine Phosphate (Robitussin with codeine) 5 ml Q6H PRN ORAL For Cough 12/08/19 11:44 01/07/20 11:43 Magnesium Hydroxide (Mom) 30 ml HSPRN PRN ORAL Constipation 12/06/19 13:15 01/05/20 13:14 12/07/19 21:02 Morphine Sulfate (Morphine Sulfate) 2 mg Q3H PRN IVP Moderate Pain (Pain Scale 4-6) 12/06/19 13:15 12/13/19 13:14 12/08/19 03:08 Morphine Sulfate (Morphine Sulfate) 4 mg Q3H PRN IVP Severe Pain (Pain Scale 7-10) 12/06/19 13:15 12/13/19 13:14 12/07/19 20:56 Ondansetron HCl (Zofran) 4 mg Q6H PRN IVP Nausea & Vomiting 12/06/19 13:15 01/05/20 13:14 Zolpidem Tartrate (Ambien) 5 mg HSPRN PRN ORAL Insomnia 12/06/19 13:15 12/13/19 13:14 Assessment/Plan Assessment/Plan IMPRESSION: 1. COVID-19 pneumonia. 2. Normoxemia. DISCUSSION: Continue medications. DC home Meg Glover Omar Syed MD Dec 10, 2019 11:22
[2019-12-10 12:00] VITALS: BP 137/81
--- NOTE | 2019-12-10 12:56 | Infectious Diseases Prog Note ---
Assessment/Plan Assessment/Plan IMPRESSION: COVID-19 disease. Seems patient had no hypoxemia. History of colon cancer. Has lymphopenia. Diarrhea resolved RECOMMENDATION: Observe off antibiotic Subjective ROS Limited/Unobtainable: Yes Constitutional: Reports: no symptoms Respiratory: Reports: no symptoms Cardiovascular: Reports: no symptoms Gastrointestinal/Abdominal: Reports: no symptoms Allergies: Coded Allergies: No Known Allergies (Unverified , 07/13/12) Objective Last 24 Hour Vital Signs Date Time Temp Pulse Resp B/P (MAP) Pulse Ox O2 Delivery O2 Flow Rate FiO2 12/10/19 09:00 Room Air 12/10/19 08:00 98.8 73 18 133/77 (95) 93 12/10/19 04:00 96.8 76 18 135/73 (93) 93 12/10/19 00:00 97.3 79 18 143/82 (102) 96 12/09/19 21:00 Room Air 12/09/19 19:02 98.2 75 18 110/56 (74) 95 12/09/19 15:02 97.2 81 18 134/81 (98) 97 Height (Feet): 5 Height (Inches): 4.00 Weight (Pounds): 179 General Appearance: no acute distress HEENT: mucous membranes moist Respiratory/Chest: lungs clear Cardiovascular: normal rate Abdomen: soft, non tender Extremities: no edema Neurologic/Psychiatric: alert, oriented x 3, responsive Current Medications Medications (Trade) Dose Ordered Sig/Eulogio Route PRN Reason Start Time Stop Time Status Last Admin Dose Admin Acetaminophen (Tylenol) 650 mg Q4H PRN ORAL Mild Pain (Pain Scale 1-3) 12/06/19 13:15 01/05/20 13:14 12/10/19 11:45 Dextrose (Dextrose 50%) 25 ml Q30M PRN IV Hypoglycemia 12/06/19 13:15 03/05/20 13:14 Dextrose (Dextrose 50%) 50 ml Q30M PRN IV Hypoglycemia 12/06/19 13:15 03/05/20 13:14 Dextrose/ Electrolytes 1,000 ml @ 100 mls/hr Q10H IV 12/06/19 14:00 01/05/20 13:59 12/10/19 10:05 Enoxaparin Sodium (Lovenox) 40 mg DAILY SUBQ 12/06/19 14:00 03/05/20 13:59 12/10/19 08:39 Famotidine (Pepcid) 20 mg BID ORAL 12/06/19 14:00 03/05/20 13:59 12/10/19 08:39 Guaifenesin/ Codeine Phosphate (Robitussin with codeine) 5 ml Q6H PRN ORAL For Cough 12/08/19 11:44 01/07/20 11:43 Magnesium Hydroxide (Mom) 30 ml HSPRN PRN ORAL Constipation 12/06/19 13:15 01/05/20 13:14 12/07/19 21:02 Morphine Sulfate (Morphine Sulfate) 2 mg Q3H PRN IVP Moderate Pain (Pain Scale 4-6) 12/06/19 13:15 12/13/19 13:14 12/08/19 03:08 Morphine Sulfate (Morphine Sulfate) 4 mg Q3H PRN IVP Severe Pain (Pain Scale 7-10) 12/06/19 13:15 12/13/19 13:14 12/07/19 20:56 Ondansetron HCl (Zofran) 4 mg Q6H PRN IVP Nausea & Vomiting 12/06/19 13:15 01/05/20 13:14 Zolpidem Tartrate (Ambien) 5 mg HSPRN PRN ORAL Insomnia 12/06/19 13:15 12/13/19 13:14 Don Castillo MD Dec 10, 2019 12:56
--- NOTE | 2019-12-10 14:08 | General Progress Note ---
Assessment/Plan Problem List: (1) COVID-19 ICD Codes: U07.1 - COVID-19 SNOMED: 587352553 (2) Nausea vomiting and diarrhea ICD Codes: R11.2 - Nausea with vomiting, unspecified; R19.7 - Diarrhea, unspecified SNOMED: 0050043 (3) Weakness ICD Codes: R53.1 - Weakness; R19.7 - Diarrhea, unspecified SNOMED: 81233528 Assessment/Plan: DC today Subjective Allergies: Coded Allergies: No Known Allergies (Unverified , 07/13/12) Subjective feels ok wants to go home Objective Last 24 Hour Vital Signs Date Time Temp Pulse Resp B/P (MAP) Pulse Ox O2 Delivery O2 Flow Rate FiO2 12/10/19 12:15 98.2 12/10/19 12:00 100.0 73 18 137/81 (99) 92 12/10/19 09:00 Room Air 12/10/19 08:00 98.8 73 18 133/77 (95) 93 12/10/19 04:00 96.8 76 18 135/73 (93) 93 12/10/19 00:00 97.3 79 18 143/82 (102) 96 12/09/19 21:00 Room Air 12/09/19 19:02 98.2 75 18 110/56 (74) 95 12/09/19 15:02 97.2 81 18 134/81 (98) 97 Intake and Output 12/09/19 12/10/19 19:00 07:00 Intake Total 1701 ml 1560 ml Balance 1701 ml 1560 ml IV Total 701 ml 1200 ml Other 1000 ml 360 ml # Voids 3 # Bowel Movements 1 Height (Feet): 5 Height (Inches): 4.00 Weight (Pounds): 179 Cardiovascular: normal rate Respiratory/Chest: lungs clear Reinaldo Castillo MD Dec 10, 2019 14:08
[2019-12-10 16:00] VITALS: BP 142/84
--- NOTE | 2019-12-13 08:56 | Discharge Summary ---
Discharge Summary Discharge Summary _ DATE OF ADMISSION: 12/06/2019 DATE OF DISCHARGE: 12/10/2019 DISCHARGED BY: Reinaldo Castillo REASON FOR ADMISSION: 69 years old male with past medical history of colon cancer, reported 4 days of generalized weakness and dizziness. Patient reported non bloody diarrhea. Patient was seen at [facility] and tested positive for COVID-19. Diarrhea continued , and he eventually came to emergency room for further evaluation and management. Patient denied shortness of breath. Upon evaluation patient was afebrile, pulse oximetry was stable on room air. Laboratory work-up revealed mild leukopenia, stable hemoglobin and hematocrit. ESR 24. D-dimer 0.26. Ferritin 135 . CRP less than 0.4. Urinalysis revealed no evidence of UTI. Stable electrolytes and renal parameters. Glucose 102. Stable LFT and lipase. Chest x-ray revealed no acute pathology. Repeated COVID-19 in the emergency room was positive. Patient subsequently admitted for further management. CONSULTANTS: pulmonary Dr. Moon ID specialist Dr. Don Castillo HOSPITAL COURSE: Patient admitted to medical surgical floor to isolation room. Patient initially started on empiric antibiotic. Patient started on IV fluids and full liquid diet. DVT prophylaxis provided. Supplemental oxygen and pulmonary toilet were on board as needed. Pulse ox symmetry remained stable on room air. Antitussive provided as needed No pulmonary symptoms. ID specialist recommended to keep patient off antibiotic and observe closely. Patient remained afebrile, no leukocytosis. Lymphopenia noted Supportive care provided. Antiemetic was on board as needed. GI prophylaxis provided. Diet was advanced as tolerated. Diarrhea resolved. Patient was able to tolerate diet. Patient clinically stabilized and was ready for discharge home FINAL DIAGNOSES: COVID-19 pneumonia History of colon cancer Diarrhea resolved Lymphopenia DISCHARGE MEDICATIONS: See Medication Reconciliation list. DISCHARGE INSTRUCTIONS: Patient was discharged home. Follow-up with her primary care provider. I have been assigned to dictate discharge summary for this account. I was not involved in the patient's management. Quynh Mooney NP Dec 13, 2019 08:56
== END 2019-12-10 19:10 | disposition home or self-care (01) | DRG 177 ==
LOC: EDBD 09:23 → EMR 09:40 → 4E 10:40 → EDBEDREQ 12:08 → 4E 12-09 00:45
DX: U07.1 COVID-19 (principal); J12.89 Other viral pneumonia; Z85.038 Personal history of other malignant neoplasm of large intestine; D72.810 Lymphocytopenia; R11.2 Nausea with vomiting, unspecified; R19.7 Diarrhea, unspecified
CPT/HCPCS: 36415; 71045; 80053; 81003; 82728; 83036; 83690; 83735; 85025; 85379; 85610; 85651; 85730; 86140; 96361; 96374; 96375; 99285; J2405; J7030; U0002